=== PATIENT | male | born 1990 | race Two or more races ===

== ENCOUNTER → 2024-12-05 | Outpatient (CLI) | payer OTHER, SELFPAY ==
--- NOTE | 2024-12-05 09:50 | XR_ITS ---
Examination: Lumbar spine, 5 views Technique: Lumbar spine AP, lateral, coned lateral lower lumbar spine, bilateral obliques 5 views Exam date and time: March 06, 2025 1002 hours INDICATIONS: Patient fell yesterday with injury to the back, back pain. FINDINGS: Satisfactory alignment lumbar vertebral bodies. No lumbar fracture. Mild disc narrowing [id number] IMPRESSION: No lumbar fracture
--- NOTE | 2024-12-05 09:50 | XR_ITS ---
EXAMINATION: Cervical spine, 5 views Technique: Cervical spine AP, AP odontoid, lateral, bilateral obliques, 5 views Exam date and time: March 06, 2025, 1002 hours INDICATIONS: Patient fell yesterday with injury to the neck, neck pain. FINDINGS: Mild reversal normal cervical lordosis. No cervical fracture. Intact odontoid No significant cervical disc narrowing IMPRESSION: No cervical fracture
--- NOTE | 2024-12-05 09:50 | XR_ITS ---
Examination: Left knee 2 views TECHNIQUE: AP lateral left knee 2 views date and time: December 05, 2024 1002 hours INDICATIONS: Patient fell yesterday with injury to the knee, knee pain. FINDINGS: No acute fracture No dislocation Small knee effusion 10 mm anterior ossified joint body IMPRESSION: No fracture
== END | disposition home or self-care (01) ==
LOC: CDIM 09:18
PROVIDERS: PCP Physician Assistant; Referring Provider Physician Assistant; Visit Provider Physician Assistant
DX: S13.4XXA Sprain of ligaments of cervical spine, initial encounter (principal); S33.5XXA Sprain of ligaments of lumbar spine, initial encounter; S83.92XA Sprain of unspecified site of left knee, initial encounter; W19.XXXA Unspecified fall, initial encounter
CPT/HCPCS: 72050; 72110; 73560